=== PATIENT | male | born 1955 | race Caucasian/White ===

== ENCOUNTER 2024-04-11 13:11 | Emergency (ER) | payer MEDICARE ==
--- NOTE | 2024-04-11 14:28 | XR ---
EXAMINATION TYPE: XR Hip LT and AP Pelvis DATE OF EXAM: 04/11/2024 CLINICAL HISTORY: pain TECHNIQUE: Single view the pelvis is submitted. 2 views of the left hip are submitted. FINDINGS: No evidence for fracture, dislocation or bony lesion. Joint spaces are well-preserved. S I joints appear symmetric. IMPRESSION: 1. No acute fracture or dislocation seen. ICD 10 NO FRACTURE, INITIAL EVALUATION [facility], , 04/11/2024 2:26 PM
[2024-04-11] MEDS: KETOROLAC 15 MG/ML 1 ML VIAL IM STA (14:46)
--- NOTE | 2024-04-11 15:53 | ED ---
General Adult HPI - General Chief complaint: Fall Stated complaint: fall Time Seen by Provider: 04/11/24 13:26 Source: patient Mode of arrival: ambulatory Limitations: no limitations - History of Present Illness Initial comments: 68-year-old male presents the emergency department from [place]. Patient states that he fell on his left hip this morning. He does have a history of chronic left hip pain and has already talked to his surgeon about replacement. Today he fell injuring it even more. He has been able to ambulate however nurse at [facility] requested that the patient have an x-ray to assess for fracture. Patient currently on Suboxone for pain management. He cannot take NSAIDs. He denies hitting his head. No other alleviating, precipitating or modifying factors - Related Data Previous Rx's Medication Instructions Recorded Ketorolac [Toradol] 10 mg PO Q8HR #15 tab 04/11/24 Allergies Allergy/AdvReac Type Severity Reaction Status Date / Time haloperidol [From Haldol] AdvReac Unknown Verified 04/11/24 13:18 ibuprofen [From Motrin] AdvReac Unknown Verified 04/11/24 13:18 pseudoephedrine AdvReac Unknown Verified 04/11/24 13:18 [From Sudafed] Review of Systems ROS Statement: Those systems with pertinent positive or pertinent negative responses have been documented in the HPI. ROS Other: All systems not noted in ROS Statement are negative. Past Medical History Past Medical History: Atrial Fibrillation, COPD, Hypertension, Osteoarthritis (OA) Past Surgical History: Back Surgery, Joint Replacement, Orthopedic Surgery Smoking Status: Current some day smoker Past Alcohol Use History: None Reported Past Drug Use History: Cocaine General Exam Limitations: no limitations General appearance: alert, in no apparent distress Head exam: Present: atraumatic, normocephalic, normal inspection Eye exam: Present: normal appearance, PERRL, EOMI. Absent: scleral icterus, conjunctival injection, periorbital swelling ENT exam: Present: normal exam, mucous membranes moist Neck exam: Present: normal inspection. Absent: tenderness, meningismus, lymphadenopathy Respiratory exam: Present: normal lung sounds bilaterally. Absent: respiratory distress, wheezes, rales, rhonchi, stridor Cardiovascular Exam: Present: regular rate, normal rhythm, normal heart sounds. Absent: systolic murmur, diastolic murmur, rubs, gallop, clicks GI/Abdominal exam: Present: soft, normal bowel sounds. Absent: distended, tenderness, guarding, rebound, rigid Extremities exam: Present: normal inspection, full ROM, normal capillary refill, other (Tenderness to palpation of the left lateral hip. No gross deformity. 2+ DP and PT pulses. Patient able to stand). Absent: tenderness, pedal edema, joint swelling, calf tenderness Back exam: Present: normal inspection Neurological exam: Present: alert, oriented X3, CN II-XII intact Psychiatric exam: Present: normal affect, normal mood Skin exam: Present: warm, dry, intact, normal color. Absent: rash Course Vital Signs 04/11/24 04/11/24 13:18 16:03 Temperature 97.9 F 98.2 F Pulse Rate 60 57 L Respiratory 18 16 Rate Blood Pressure 150/71 158/78 O2 Sat by Pulse 97 98 Oximetry Medical Decision Making - Medical Decision Making Was pt. sent in by a medical professional or institution (, PA, HEALTH OFFICER, urgent care, hospital, or half-way...) When possible be specific @ -[place] Did you speak to anyone other than the patient for history (EMS, parent, family, police, friend...)? What history was obtained from this source @ -Spoke with EMS Did you review nursing and triage notes (agree or disagree)? Why? @ -I reviewed and agree with nursing and triage notes Were old charts reviewed (outside hosp., previous admission, EMS record, old EKG, old radiological studies, urgent care reports/EKG's, half-way records)? Report findings @ -No old charts were reviewed Differential Diagnosis (chest pain, altered mental status, abdominal pain women, abdominal pain men, vaginal bleeding, weakness, fever, dyspnea, syncope, headache, dizziness, GI bleed, back pain, seizure, CVA, palpatations, mental health, musculoskeletal)? @ -Differential Musculoskeletal Muscular strain, contusion, ligament sprain, fracture, arthritis, septic arthritis, bursitis, cellulitis, muscle spasm, nerve compression, DVT, arterial occlusion, herpes zoster, electrolyte abnormality, tumor.... This is not meant to be in all inclusive list EKG interpreted by me (3pts min.). @ -Not done X-rays interpreted by me (1pt min.). @ -Yes and demonstrates advanced arthritic changes CT interpreted by me (1pt min.). @ -None done U/S interpreted by me (1pt. min.). @ -None done What testing was considered but not performed or refused? (CT, X-rays, U/S, labs)? Why? @ -None What meds were considered but not given or refused? Why? @ -None Did you discuss the management of the patient with other professionals (professionals i.e. DrHiwot, PA, HEALTH OFFICER, lab, RT, psych nurse, administrator social welfare, clinical science consultant, teacher, tactical deception plans officer, casework manager)? Give summary @ -No Was smoking cessation discussed for >3mins.? @ -No Was critical care preformed (if so, how long)? @ -No Were there social determinants of health that impacted care today? How? (Homelessness, low income, unemployed, alcoholism, drug addiction, transportation, low edu. Level, literacy, decrease access to med. care, detention, rehab)? @ -Patient currently in rehab Was there de-escalation of care discussed even if they declined (Discuss DNR or withdrawal of care, Hospice)? DNR status @ -No What co-morbidities impacted this encounter? (DM, HTN, Smoking, COPD, CAD, Canc er, CVA, ARF, Chemo, Hep., AIDS, mental health diagnosis, sleep apnea, morbid obesity)? @ -Osteoarthritis Was patient admitted / discharged? Hospital course, mention meds given and route, prescriptions, significant lab abnormalities, going to OR and other pertinent info. @ -Upon arrival patient seen and evaluated in hallway 19. Thorough history and physical exam was performed. X-ray was obtained which is negative for fracture. Patient is able to ambulate on the extremity. He did tolerate Toradol. I will call in a prescription for Toradol to his pharmacy. Patient ambulatory and ready for discharge. Patient discharged back to [facility] in stable condition Undiagnosed new problem with uncertain prognosis? @ -No Drug Therapy requiring intensive monitoring for toxicity (Heparin, Nitro, Insulin, Cardizem)? @ -No Were any procedures done? @ -No Diagnosis/symptom? @ -Acute fall, acute exacerbation of chronic left hip pain Acute, or Chronic, or Acute on Chronic? @ -Acute Uncomplicated (without systemic symptoms) or Complicated (systemic symptoms)? @ -Uncomplicated Side effects of treatment? @ -No Exacerbation, Progression, or Severe Exacerbation? @ -No Poses a threat to life or bodily function? How? (Chest pain, [place], [place], pneumonia, PE, COPD, DKA, ARF, appy, cholecystitis, CVA, Diverticulitis, Homicidal, Suicidal, threat to staff... and all critical care pts) @ -No Disposition Clinical Impression: Fall, Left hip pain Disposition: HOME SELF-CARE Condition: Stable Instructions (If sedation given, give patient instructions): Hip Pain (ED) Additional Instructions: You have advanced arthritis but no fracture. You will be sent back to [place]. Follow up with your orthopedist for further management of your pain Prescriptions: Ketorolac [Toradol] 10 mg PO Q8HR #15 tab Is patient prescribed a controlled substance at d/c from ED?: No Referrals: [facility] [NON-STAFF] - 1-2 days [facility] [NON-STAFF] - 1-2 days None,Stated [Primary Care Provider] - 1-2 days Forms: Area PCPs
[2024-04-11 16:09] VITALS: BP 158/78; PULSE 57; RESP 16; TEMP 98.2
== END 2024-04-11 16:10 | disposition home or self-care (01) ==
LOC: EC 13:11
CPT/HCPCS: 73502; 96372; 99283

== ENCOUNTER 2024-04-15 13:38 | Emergency (ER) | payer MEDICARE ==
--- NOTE | 2024-04-15 15:43 | ED ---
Lower Extremity Injury HPI - General Source: patient, RN notes reviewed, old records reviewed Mode of arrival: ambulatory Limitations: no limitations <Jing Magallanes - Last Filed: 04/15/24 17:16> <Анна Grijalva - Last Filed: 04/15/24 19:58> - General Chief Complaint: Extremity Injury, Lower Stated Complaint: L Knee Pain Time Seen by Provider: 04/15/24 15:41 - History of Present Illness Initial Comments: Patient is a 68-year-old male presenting to the ER from [place] for evaluation of posterior left knee pain. Patient is currently residing at [facility] for cocaine abuse. He has been there for approximately 1 week. States today he started to experience a sharp throbbing posterior medial knee pain. He denies any known injuries or traumas. He denies any paresthesias. He also mentions his bilateral lower extremities are edematous and have been for the past couple of weeks. Patient does have a history of atrial fibrillation and is currently taking Eliquis. He denies any known history of heart failure. He denies any chest pain, shortness of breath, dizziness or lightheadedness. No history of blood clots. Patient is taking Suboxone for pain control. No other complaints. (Jing Magallanes) - Related Data Home Medications Medication Instructions Recorded Confirmed Acetaminophen Tab [Tylenol] 650 mg PO Q4H PRN MDD 2600 mg 04/15/24 04/15/24 Albuterol Sulfate [Ventolin HFA] 1 - 2 puff INHALATION RT-Q4H PRN 04/15/24 04/15/24 Apixaban [Eliquis] 5 mg PO Q12H 04/15/24 04/15/24 Buprenorphine-Nalox 8-2 mg Tab 1 tab SUBLINGUAL BID 04/15/24 04/15/24 [Suboxone 8-2 mg Tab] Calcium Phos/D3/Magnesium/Zinc 1 tab PO TID PRN 04/15/24 04/15/24 [Rimapmg-Clu-Rqml-Vitamin D3] Flecainide [Tambocor] 50 mg PO Q12HR 04/15/24 04/15/24 Fluticasone/Umeclidin/Vilanter 1 puff INHALATION RT-DAILY 04/15/24 04/15/24 [Trelegy Ellipta 100-62.5-25] Gabapentin 1,200 mg PO TID 04/15/24 04/15/24 Hyoscyamine Sulfate [Levsin] 0.125 mg PO QID PRN 04/15/24 04/15/24 Icy Hot Liquid Roll On 1 applic TOPICAL DIRECTED PRN 04/15/24 04/15/24 Losartan [Cozaar] 25 mg PO DAILY 04/15/24 04/15/24 Melatonin 10 mg PO HS 04/15/24 04/15/24 Multivitamins, Thera [Multivitamin 1 tab PO DAILY 04/15/24 04/15/24 (formulary)] Omeprazole 20 mg PO DAILY 04/15/24 04/15/24 Oxybutynin ER [Ditropan XL] 10 mg PO DAILY 04/15/24 04/15/24 Sulfamethox-Tmp 800-160Mg [Bactrim 1 tab PO Q12HR 04/15/24 04/15/24 DS 800-160 mg] Tamsulosin [Flomax] 0.4 mg PO DAILY 04/15/24 04/15/24 Thiamine [Vitamin B-1] 100 mg PO DAILY 04/15/24 04/15/24 buPROPion XL [Wellbutrin XL] 300 mg PO DAILY 04/15/24 04/15/24 dilTIAZem HCL [dilTIAZem HCL 24Hr 180 mg PO DAILY 04/15/24 04/15/24 ER (CD)] ondansetron HCL [Ondansetron HCl] 8 mg PO Q6H PRN 04/15/24 04/15/24 traZODone HCL [Desyrel] 50 - 150 mg PO HS PRN 04/15/24 04/15/24 Previous Rx's Medication Instructions Recorded Furosemide [Lasix] 40 mg PO DAILY 7 Days #7 tablet 04/15/24 Furosemide [Lasix] 40 mg PO DAILY 7 Days #7 tablet 04/15/24 Allergies Allergy/AdvReac Type Severity Reaction Status Date / Time haloperidol [From Haldol] AdvReac Unknown Verified 04/15/24 19:14 ibuprofen [From Motrin] AdvReac Unknown Verified 04/15/24 19:14 pseudoephedrine AdvReac Unknown Verified 04/15/24 19:14 [From Sudafed] quinidine [From Fernanda-Lindsay] AdvReac Unknown Verified 04/15/24 19:14 Review of Systems ROS Other: All systems not noted in ROS Statement are negative. <Jing Magallanes - Last Filed: 04/15/24 17:16> ROS Other: All systems not noted in ROS Statement are negative. <Анна Grijalva - Last Filed: 04/15/24 19:58> ROS Statement: Those systems with pertinent positive or pertinent negative responses have been documented in the HPI. Past Medical History Past Medical History: Atrial Fibrillation, COPD, Hypertension, Osteoarthritis (OA) Past Surgical History: Back Surgery, Joint Replacement, Orthopedic Surgery Smoking Status: Current some day smoker Past Alcohol Use History: None Reported Past Drug Use History: Cocaine <Jing Magallanes - Last Filed: 04/15/24 17:16> General Exam Limitations: no limitations General appearance: alert, in no apparent distress Respiratory exam: Present: normal lung sounds bilaterally. Absent: respiratory distress, wheezes, rales, rhonchi, stridor Cardiovascular Exam: Present: regular rate, normal rhythm, normal heart sounds. Absent: systolic murmur, diastolic murmur, rubs, gallop, clicks Extremities exam: Present: normal inspection, full ROM, tenderness (Left posterior medial knee. No overlying skin changes. ), normal capillary refill, pedal edema (1+ pretibial and pedal edema bilaterally.) Neurological exam: Present: alert, oriented X3 Skin exam: Present: warm, dry, intact, normal color. Absent: rash <Jing Magallanes - Last Filed: 04/15/24 17:16> Course Vital Signs 04/15/24 04/15/24 04/15/24 14:26 18:14 19:31 Temperature 98.6 F 98.7 F Pulse Rate 78 71 65 Respiratory 20 18 16 Rate Blood Pressure 144/79 138/84 166/88 O2 Sat by Pulse 96 96 99 Oximetry Medical Decision Making - Lab Data Result diagrams: 04/15/24 15:58 04/15/24 15:58 - EKG Data -: EKG Interpreted by Ny <Jing Magallanes - Last Filed: 04/15/24 17:16> - Lab Data Result diagrams: 04/15/24 15:58 04/15/24 15:58 - Radiology Data Radiology results: report reviewed, image reviewed <Анна Grijalva - Last Filed: 04/15/24 19:58> - Medical Decision Making Was pt. sent in by a medical professional or institution (PAYTON Fermin, DIRECTOR OF DIGITAL TECHNOLOGY, urgent care, hospital, or residential...) When possible be specific @ -Patient sent by [facility] for evaluation of left knee pain. Did you speak to anyone other than the patient for history (EMS, parent, family, police, friend...)? What history was obtained from this source @ -No Did you review nursing and triage notes (agree or disagree)? Why? @ -I reviewed and agree with nursing and triage notes Were old charts reviewed (outside hosp., previous admission, EMS record, old EKG, old radiological studies, urgent care reports/EKG's, residential records)? Report findings @ -No old charts were reviewed Differential Diagnosis (chest pain, altered mental status, abdominal pain women, abdominal pain men, vaginal bleeding, weakness, fever, dyspnea, syncope, headache, dizziness, GI bleed, back pain, seizure, CVA, palpatations, mental health, musculoskeletal)? @ -Differential Musculoskeletal Muscular strain, contusion, ligament sprain, fracture, arthritis, septic arthritis, bursitis, cellulitis, muscle spasm, nerve compression, DVT, arterial occlusion, herpes zoster, electrolyte abnormality, tumor.... This is not meant to be in all inclusive list EKG interpreted by me (3pts min.). @ -As above X-rays interpreted by me (1pt min.). @ -Pending CT interpreted by me (1pt min.). @ -None done U/S interpreted by me (1pt. min.). @ -Pending What testing was considered but not performed or refused? (CT, X-rays, U/S, labs)? Why? @ -None What meds were considered but not given or refused? Why? @ -None Did you discuss the management of the patient with other professionals (professionals i.e. PAYTON Fermin, DIRECTOR OF DIGITAL TECHNOLOGY, lab, RT, psych nurse, social worker health services, coffee urn attendant, teacher, assignment officer, telehealth case manager)? Give summary @ -No Was smoking cessation discussed for >3mins.? @ -No Was critical care preformed (if so, how long)? @ -No Were there social determinants of health that impacted care today? How? (Homeles sness, low income, unemployed, alcoholism, drug addiction, transportation, low edu. Level, literacy, decrease access to med. care, longterm, rehab)? @ -Patient currently residing at [facility] for cocaine abuse. Was there de-escalation of care discussed even if they declined (Discuss DNR or withdrawal of care, Hospice)? DNR status @ -No What co-morbidities impacted this encounter? (DM, HTN, Smoking, COPD, CAD, Cancer, CVA, ARF, Chemo, Hep., AIDS, mental health diagnosis, sleep apnea, morbid obesity)? @ -Atrial fibrillation on Eliquis Was patient admitted / discharged? Hospital course, mention meds given and route, prescriptions, significant lab abnormalities, going to OR and other pertinent info. @ -68-year-old male presented to the ER with a chief complaint of left knee pain. History and physical exam completed. Vitals stable. Patient in no signs of acute distress. Exam remarkable for tenderness to left posterior medial knee. No overlying skin changes. Patient has full range of motion. Bilateral extremity neurovascular tact. Bilateral 1+ pretibial and pedal edema bilaterally. CBC unremarkable. CMP mild signs of dehydration. BNP 1070. Bilateral lower extremity ultrasound and chest x-ray pending. Patient signed out to Анна Grijalva PA-C pending results and disposition. (Jing Magallanes) When I went to evaluate the patient, he advised that he was evaluated here 4 days ago for a fall, injuring his left hip. X-rays were negative at that time, however he states that the pain is shooting from his left hip into the knee, which he believes is the cause of his knee pain. Duplex ultrasound of the bilateral lower extremities demonstrates no evidence of a DVT. Chest x-ray demonstrates signs of pulmonary edema. Patient denies any chest pain or shortness of breath. Given the persistence of his hip pain and difficulty with ambulation, CT scan of the pelvis was obtained for any subtle fractures that may have been missed on x-ray. No acute fractures were identified on the CT. X-ray of the left knee obtained as well as revealing no acute process. The cause of his knee pain at this point is not entirely clear. It may be related to the fall he had a few days ago given that he feels like pain is radiating from the hip into the knee. Based on the chest x-ray and BNP, he may have be developing CHF. However, he is not experiencing any chest pain or shortness of breath. I did advise admission for possible new onset CHF and cardiology evaluation. However, patient refused. States that he is feeling much better in terms of the pain and wishes like to go back to [facility]. Given the pitting edema with fluid overload, prescription for Lasix provided to be taken over the next few days. He was given very strict return parameters as well. Patient discharged back to [facility] in stable condition. Case discussed with ED attending Dr. Orona. Return precautions reviewed in depth, the patient is instructed to return to the emergency department with any new, worsening, or concerning symptoms. Patient verbalized understanding. (Анна Grijalva) - Lab Data Lab Results 04/15/24 04/15/24 04/15/24 Range/Units 15:58 15:58 15:58 WBC 8.1 (3.8-10.6) k/uL RBC 4.62 (4.30-5.90) m/uL Hgb 13.2 (13.0-17.5) gm/dL Hct 41.0 (39.0-53.0) % MCV 88.8 (80.0-100.0) fL MCH 28.7 (25.0-35.0) pg MCHC 32.3 (31.0-37.0) g/dL RDW 14.3 (11.5-15.5) % Plt Count 355 (150-450) k/uL MPV 6.4 Neutrophils % 70 % Lymphocytes % 18 % Monocytes % 7 % Eosinophils % 3 % Basophils % 1 % Neutrophils # 5.7 (1.3-7.7) k/uL Lymphocytes # 1.5 (1.0-4.8) k/uL Monocytes # 0.5 (0-1.0) k/uL Eosinophils # 0.3 (0-0.7) k/uL Basophils # 0.0 (0-0.2) k/uL PT (10.0-12.5) sec INR (<1.2) APTT (22.0-30.0) sec Sodium 137 (137-145) mmol/L Potassium 4.4 (3.5-5.1) mmol/L Chloride 103 (98-107) mmol/L Carbon Dioxide 31 H (22-30) mmol/L Anion Gap 3 mmol/L BUN 23 H (9-20) mg/dL Creatinine 0.92 (0.66-1.25) mg/dL Est GFR (CKD-EPI)AfAm >90 (>60 ml/min/1.73 sqM) Est GFR (CKD-EPI)NonAf 85 (>60 ml/min/1.73 sqM) Glucose 105 H (74-99) mg/dL Calcium 9.1 (8.4-10.2) mg/dL Total Bilirubin 0.4 (0.2-1.3) mg/dL AST 28 (17-59) U/L ALT 19 (4-49) U/L Alkaline Phosphatase 92 (38-126) U/L Troponin I 0.026 (0.000-0.034) ng/mL NT-Pro-B Natriuret Pep 1070 pg/mL Total Protein 6.4 (6.3-8.2) g/dL Albumin 3.7 (3.5-5.0) g/dL 04/15/24 Range/Units 15:58 WBC (3.8-10.6) k/uL RBC (4.30-5.90) m/uL Hgb (13.0-17.5) gm/dL Hct (39.0-53.0) % MCV (80.0-100.0) fL MCH (25.0-35.0) pg MCHC (31.0-37.0) g/dL RDW (11.5-15.5) % Plt Count (150-450) k/uL MPV Neutrophils % % Lymphocytes % % Monocytes % % Eosinophils % % Basophils % % Neutrophils # (1.3-7.7) k/uL Lymphocytes # (1.0-4.8) k/uL Monocytes # (0-1.0) k/uL Eosinophils # (0-0.7) k/uL Basophils # (0-0.2) k/uL PT 10.5 (10.0-12.5) sec INR 1.0 (<1.2) APTT 28.2 (22.0-30.0) sec Sodium (137-145) mmol/L Potassium (3.5-5.1) mmol/L Chloride (98-107) mmol/L Carbon Dioxide (22-30) mmol/L Anion Gap mmol/L BUN (9-20) mg/dL Creatinine (0.66-1.25) mg/dL Est GFR (CKD-EPI)AfAm (>60 ml/min/1.73 sqM) Est GFR (CKD-EPI)NonAf (>60 ml/min/1.73 sqM) Glucose (74-99) mg/dL Calcium (8.4-10.2) mg/dL Total Bilirubin (0.2-1.3) mg/dL AST (17-59) U/L ALT (4-49) U/L Alkaline Phosphatase (38-126) U/L Troponin I (0.000-0.034) ng/mL NT-Pro-B Natriuret Pep pg/mL Total Protein (6.3-8.2) g/dL Albumin (3.5-5.0) g/dL - EKG Data EKG Comments: EKG taken at 15: 15 showing a sinus rhythm with sinus arrhythmia. No acute ST segment or T wave abnormalities. Ventricular rate 64, DE interval 194, QRS duration 100, QT/QTc 429/438. (Jing Magallanes) Disposition <Jing Magallanes - Last Filed: 04/15/24 17:16> Is patient prescribed a controlled substance at d/c from ED?: No Time of Disposition: 19:20 <Анна Grijalva - Last Filed: 04/15/24 19:58> Clinical Impression: Left knee pain, Fluid overload Disposition: HOME SELF-CARE Instructions (If sedation given, give patient instructions): Knee Pain (ED) Additional Instructions: Return to the emergency department with any new, worsening, or concerning symptoms. Continue to take the Toradol up to every 6 hours as needed for pain. Begin taking the Lasix once daily for 7 days. Take this in the morning if possible to avoid excessive urination at night. Follow up with your primary c are provider in 1-2 days. Prescriptions: Furosemide [Lasix] 40 mg PO DAILY 7 Days #7 tablet Furosemide [Lasix] 40 mg PO DAILY 7 Days #7 tablet Referrals: None,Stated [Primary Care Provider] - 1-2 days
[2024-04-15 16:14] LABS: Basophils % (A) 1 %; Eosinophils # (A) 0.3 k/uL (0-0.7); Eosinophils % (A) 3 %; HGB 13.2 gm/dL (13.0-17.5); Lymphocytes # (A) 1.5 k/uL (1.0-4.8); Lymphocytes % (A) 18 %; MCH 28.7 pg (25.0-35.0); MCHC 32.3 g/dL (31.0-37.0); MCV 88.8 fL (80.0-100.0); Mean Platelet Volume 6.4; Monocytes # (A) 0.5 k/uL (0-1.0); Monocytes % (A) 7 %; Neutrophils # (A) 5.7 k/uL (1.3-7.7); Neutrophils % (A) 70 %; Platelet Count 355 k/uL (150-450); RBC 4.62 m/uL (4.30-5.90); RDW 14.3 % (11.5-15.5); WBC 8.1 k/uL (3.8-10.6)
[2024-04-15 16:21] LABS: ALT 19 U/L (4-49); AST 28 U/L (17-59); African American GFR (CKD) >90 (>60 ml/min/1.73 sqM); Albumin 3.7 g/dL (3.5-5.0); Alkaline Phosphatase 92 U/L (38-126); Anion Gap 3 mmol/L; Blood Urea Nitrogen 23 mg/dL (9-20); Calcium 9.1 mg/dL (8.4-10.2); Carbon Dioxide 31 mmol/L (22-30); Chloride 103 mmol/L (98-107); Glucose 105 mg/dL (74-99); Non-African American GFR(CKD) 85 (>60 ml/min/1.73 sqM); Potassium 4.4 mmol/L (3.5-5.1); Sodium 137 mmol/L (137-145); Total Bilirubin 0.4 mg/dL (0.2-1.3); Total Protein 6.4 g/dL (6.3-8.2)
[2024-04-15 16:29] LABS: NT-Pro-B-Type Natriuretic Pept 1070 pg/mL; Prothrombin Time 10.5 sec (10.0-12.5)
[2024-04-15 16:30] LABS: Partial Thromboplastin Time 28.2 sec (22.0-30.0)
--- NOTE | 2024-04-15 17:07 | US ---
EXAMINATION TYPE: US venous doppler duplex LE BI DATE OF EXAM: 04/15/2024 3:41 PM COMPARISON: NONE CLINICAL INDICATION: Male, 68 years old with history of sunny leg edema; Leg swelling per patient. On blood thinners. No redness. Right leg vein ablation. , Pain, Swelling TECHNIQUE: The lower extremity deep venous system is examined utilizing real time linear array sonog toby with graded compression, color doppler sonography, and spectral doppler. SIDE PERFORMED: Bilateral FINDINGS: VESSELS IMAGED: Common Femoral Vein Deep Femoral Vein Greater Saphenous Vein * Femoral Vein Popliteal Vein Small Saphenous Vein *- left not seen Proximal Calf Veins (* superficial vessels) Right Leg: Negative for DVT at time of scan Left Leg: Negative for DVT at time of scan IMPRESSION: No ultrasound evidence for deep venous thrombosis. [facility], , 04/15/2024 5:05 PM
--- NOTE | 2024-04-15 17:51 | XR ---
EXAMINATION TYPE: XR chest 2V DATE OF EXAM: 04/15/2024 5:31 PM COMPARISON: None CLINICAL INDICATION: Male, 68 years old with history of sunny peripheral edema; H TECHNIQUE: XR chest 2V Frontal and lateral views of the chest. FINDINGS: Lungs/Pleura: Low lung volumes are present. There is no evidence of pleural effusion, focal consolida tion, or pneumothorax. Pulmonary vascularity: Unremarkable. Heart/mediastinum: Cardiomediastinal silhouette is unremarkable. Musculoskeletal: No acute osseous pathology. Suspected vertebroplasty changes to the spine. Rotator c uff repair anchor in the right shoulder. Other findings: None IMPRESSION: Low lung volumes with a generalized hazy appearance which could represent atelectasis versus pulmonar y edema correlate with serum BNP. [facility], , 04/15/2024 5:49 PM
[2024-04-15] MEDS: ORPHENADRINE 30 MG/ML 2 ML VIAL IM STA (18:05)
[2024-04-15] MEDS: KETOROLAC 15 MG/ML 1 ML VIAL IM STA (18:05)
[2024-04-15] MEDS: KETOROLAC 15 MG/ML 1 ML VIAL IVP STA (18:11)
[2024-04-15] MEDS: ORPHENADRINE 30 MG/ML 2 ML VIAL IVP STA (18:11)
[2024-04-15 18:16] VITALS: TEMP 98.7
--- NOTE | 2024-04-15 18:27 | XR ---
EXAMINATION TYPE: XR knee complete LT DATE OF EXAM: 04/15/2024 6:08 PM COMPARISON: None CLINICAL INDICATION: Male, 68 years old with history of Pain; [facility] TECHNIQUE: XR knee complete LT; examined in Frontal, lateral and oblique projections. FINDINGS: No evidence of any acute osseous pathology, soft tissue swelling, or joint effusion is no zuly. Tricompartmental osteophyte formation involving the femoral condyles, tibial plateau and patella . Mild joint space narrowing. A fabella is present. IMPRESSION: 1. No acute osseous pathology. 2. Mild left knee degeneration changes. [facility], , 04/15/2024 6:25 PM
--- NOTE | 2024-04-15 18:49 | CT ---
EXAMINATION TYPE: CT pelvis wo con DATE OF EXAM: 04/15/2024 6:06 PM COMPARISON: CT abdomen pelvis most recent from CLINICAL INDICATION: Male, 68 years old with history of Left hip pain after fall; left hip pain follo wing fall TECHNIQUE: Axial CT pelvis wo con;Sagittal and coronal reformats were created on a separate workstat ion. Contrast used: mL of , (none if empty) Oral contrast used: without Oral Contrast (none if empty) CT DLP: 503.5 mGycm, Automated exposure control for dose reduction was used. FINDINGS: BLADDER: No evidence for wall thickening or mass given limitations of exam. REPRODUCTIVE: Unremarkable. ABDOMEN & PELVIS STOMACH AND BOWEL: Large amount stool in the rectum and throughout the colon visualized.. No evidence of bowel obstruction. PERITONEUM/RETROPERITONEUM: No evidence of pneumoperitoneum or free fluid. VASCULATURE: No evidence of aortic aneurysm. MUSCULOSKELETAL: No evidence of fracture. Left hip joint space narrowing osteophyte formation and sub chondral sclerosis. Right hip arthroplasty appears intact. Surgical changes to the spine appear intac t. LYMPH NODES: No gross evidence for lymphadenopathy. SOFT TISSUE/ABDOMINAL WALL: Umbilical hernia containing fluid in the proximal small bowel. IMPRESSION: 1. No evidence of fracture. Left hip severe osteoarthrosis. 2. Right hip arthroplasty appears intact. 3. Postsurgical changes spine appear intact. 4. Large stool burden in the rectum. 5. Umbilical hernia containing small bowel and fat. No evidence for obstruction attenuation. [facility], , 04/15/2024 6:47 PM
[2024-04-15 19:35] VITALS: BP 166/88; PULSE 65; RESP 16
== END 2024-04-15 19:31 | disposition home or self-care (01) ==
LOC: EC 13:38
CPT/HCPCS: 36415; 71046; 72192; 80053; 83880; 84484; 85025; 85610; 85730; 93005; 93970; 96374; 96375; 99284